=== PATIENT | male | born 1990 | race African-American/Black ===

== ENCOUNTER 2016-05-04 18:41 | Emergency (ER) | payer SELFPAY ==
[2016-05-04 19:41] VITALS: BMI 23.1
[2016-05-04 19:55] LABS: AUTOMATED BASOPHIL 0.5 % (0-2); AUTOMATED EOSINOPHIL 0.7 % (0-5); AUTOMATED LYMPH 41.8 % (17-44); AUTOMATED MONOCYTE 8.4 % (3-10); AUTOMATED NEUTROPHIL 48.6 % (45-76); MPV 8.7 fL (7.4-10.4)
[2016-05-04 20:07] LABS: BLOOD UREA NITROGEN 16 MG/DL (9-20); CALCIUM 9.5 MG/DL (8.4-10.2); CALCULATED OSMOLALITY 269 MOs/Kg (270-290); CHLORIDE 100 mEq/L (98-107); GLUCOSE 97 MG/DL (70-99); SODIUM LEVEL 139 mEq/L (137-146)
[2016-05-04 20:10] LABS: LEUKOCYTES/URINE NEG (NEGATIVE); NITRITE/URINE NEG (NEGATIVE); URINE OCCULT BLOOD NEG (NEG/TRACE)
--- NOTE | 2016-05-04 21:24 | EDPRACDOC ---
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 VOMITING 3 DAYS AGO. THEN BETTER. PAIN CURRENTLY 9/10, SHARP. ALSO WANTS TO GET A LUMP ON RIGHT CHEST FOR ABOUT A YEAR, GETTING BIGGER. WANTS CHECKED. ED Past Medical History - History Reviewed Yes Nurses notes reviewed and agree except as marked - Patient Medical History Psychological History: Denies: Depression Systemic History: Denies: Cancer Surgical History: Reports: Appendectomy - Social Medical History Smoking Status: Never smoker EDM Review of Systems - Review of Systems ROS Negative Except as Marked: Yes All systems reviewed and were negative except as marked Constitutional: No Symptoms Reported. negative: Fever Eyes: No Symptoms Reported Respiratory: No Symptoms Reported Cardiovascular: No Symptoms Reported - Physical Exam Constitutional: Alert (Awake), No apparent distress Oriented to: Time, Person, Place Last recorded Vital Signs: Last Vital Signs Temp 98.5 F 05/04/16 19:38 Pulse 96 05/04/16 21:09 Resp 20 05/04/16 21:09 BP 137/78 05/04/16 21:09 Pulse Ox 98 05/04/16 21:09 Oxygen Pulse Oxygen Saturation 98 O2 Device Room Air Oxygen Flow Rate Fraction of Inspired Oxygen ( FIO2) - HEENT Head: Normal ( normocephalic) Eye Exam: Normal (PERRL, EOMI, Sclera white) Oropharynx: Normal (Pharynx:Moist without exudate,Gums-no swelling) Nose: No Symptoms Reported (septum midline) Neck: Normal (FROM, trachea at midline) - Respiratory/Cardiovascular Respiratory: Normal - CTA (ON LEFT), Diminished (ON RIGHT) Cardiovascular: Normal (RRR without murmur, gallop or rub) - GI Auscultation: Normal (NABS) Palpation: Normal (Soft,No rebound or guarding, non distended) Tenderness: Non tender Pollard's Sign: Negative - Musculoskeletal Back: Normal (Non-Tender) Extremities: Normal (Normal tone, Pulses 2+ No cyanosis or edema, FROM) Musculoskeletal Comment: RIGHT ANTERIOR, INFERIOR CHEST WALL TTP. - Integumentary Skin: Normal, Warm, Dry, Other (NO MASSES FELT IN BREAST TISSUE, BUT PT POINTS TO AREA UNDER AREOLA) Lymphatics: Normal (no adenopathy) - Neurologic Memory Impaired: Normal Motor Function: Normal (Normal tone, Pulses 2+ No cyanosis or edema, FROM) Cranial Nerve: Normal (CN II-X11 intact sensation, strength 5/5) Cerebellar: Normal Mood Description: Normal Perception: Normal - Results 05/04/16 19:42 05/04/16 19:42 WBC 4.8 xk/uL (3.8-10.8) 05/04/16 19:42 RBC 5.68 xM/uL (4.70-6.10) 05/04/16 19:42 Hgb 15.6 g/dL (14.0-18.0) 05/04/16 19:42 Hct 46.7 % (42-52) 05/04/16 19:42 MCV 82 fL (80-94) 05/04/16 19:42 MCH 27.4 pg (27-32) 05/04/16 19:42 MCHC 33.3 g/dl (33-36) 05/04/16 19:42 RDW 13.4 % (11.5-14.5) 05/04/16 19:42 Plt Count 145 xk/uL (130-400) 05/04/16 19:42 MPV 8.7 fL (7.4-10.4) 05/04/16 19:42 Neut % (Auto) 48.6 % (45-76) 05/04/16 19:42 Lymph % (Auto) 41.8 % (17-44) 05/04/16 19:42 [place] % (Auto) 8.4 % (3-10) 05/04/16 19:42 Eos % (Auto) 0.7 % (0-5) 05/04/16 19:42 Baso % (Auto) 0.5 % (0-2) 05/04/16 19:42 Absolute Neuts (auto) 2.30 xk/uL (1.7-8.2) 05/04/16 19:42 Absolute Lymphs (auto) 1.97 xk/uL (0.65-4.75) 05/04/16 19:42 Sodium 139 mEq/L (137-146) 05/04/16 19:42 Potassium 4.1 mEq/L (3.5-5.1) 05/04/16 19:42 Chloride 100 mEq/L (98-107) 05/04/16 19:42 Carbon Dioxide 28 mMOL/L (22-33) 05/04/16 19:42 Anion Gap 15 mEq/L (8-16) 05/04/16 19:42 BUN 16 MG/DL (9-20) 05/04/16 19:42 Creatinine 0.90 MG/DL (0.66-1.25) 05/04/16 19:42 Estimated GFR (MDRD) > 60 mL/min (>=60) 05/04/16 19:42 Glucose 97 MG/DL (70-99) 05/04/16 19:42 Calculated Osmolality 269 MOs/Kg (270-290) L 05/04/16 19:42 Calcium 9.5 MG/DL (8.4-10.2) 05/04/16 19:42 Total Bilirubin 0.6 MG/DL (0.2-1.3) 05/04/16 19:42 AST 31 IU/L (17-59) 05/04/16 19:42 ALT 30 IU/L (21-72) 05/04/16 19:42 Alkaline Phosphatase 54 IU/L (38-126) 05/04/16 19:42 Total Protein 8.0 G/DL (6.3-8.2) 05/04/16 19:42 Albumin 4.6 G/DL (3.5-5.0) 05/04/16 19:42 Lipase 85 U/L (23-300) 05/04/16 19:42 Urine Color Yellow 05/04/16 19:42 Urine Clarity Clear 05/04/16 19:42 Urine pH 6.0 (5.0-8.0) 05/04/16 19:42 Ur Specific [place] 1.015 (1.003-1.035) 05/04/16 19:42 Urine Protein Neg (NEG/TRACE) 05/04/16 19:42 Urine Glucose (UA) Neg (NEGATIVE) 05/04/16 19:42 Urine Ketones Neg (NEGATIVE) 05/04/16 19:42 Urine Occult Blood Neg (NEG/TRACE) 05/04/16 19:42 Urine Nitrite Neg (NEGATIVE) 05/04/16 19:42 Urine Bilirubin Neg (NEGATIVE) 05/04/16 19:42 Urine Urobilinogen <2.0 MG/DL (0-1) 05/04/16 19:42 Ur Leukocyte Esterase Neg (NEGATIVE) 05/04/16 19:42 Lab Results 05/04/16 05/04/16 05/04/16 19:42 19:42 19:42 WBC 4.8 RBC 5.68 Hgb 15.6 Hct 46.7 MCV 82 MCH 27.4 MCHC 33.3 RDW 13.4 Plt Count 145 MPV 8.7 Neut % (Auto) 48.6 Lymph % (Auto) 41.8 [place] % (Auto) 8.4 Eos % (Auto) 0.7 Baso % (Auto) 0.5 Absolute Neuts (auto) 2.30 Absolute Lymphs (auto) 1.97 Sodium 139 Potassium 4.1 Chloride 100 Carbon Dioxide 28 Anion Gap 15 BUN 16 Creatinine 0.90 Estimated GFR (MDRD) > 60 Glucose 97 Calculated Osmolality 269 L Calcium 9.5 Total Bilirubin 0.6 AST 31 ALT 30 Alkaline Phosphatase 54 Total Protein 8.0 Albumin 4.6 Lipase 85 Urine Color Yellow Urine Clarity Clear Urine pH 6.0 Ur Specific [place] 1.015 Urine Protein Neg Urine Glucose (UA) Neg Urine Ketones Neg Urine Occult Blood Neg Urine Nitrite Neg Urine Bilirubin Neg Urine Urobilinogen <2.0 Ur Leukocyte Esterase Neg - EKG EKG #1 EKG Time: 21:42 -: Yes EKG interpreted by me Rate: bpm: 87 [place]: Normal Rhythm: NSR Block: None Hypertrophy: None ST: Normal Comments: NORMAL EKG - Departure Yes I personally saw and evaluated the patient. Disposition: Home Final Diagnosis: Chest wall pain Instructions: Chest Wall Pain Education/Counseling Given To: Patient Education/Counseling Given Regarding: Diagnosis Referrals: None,No Provider [Primary Care Provider] - One Week Efe Navarro MD [Staff Physician] - One Week Prescriptions: Ketorolac Tromethamine [Toradol] 10 mg PO Q6H PRN #10 tab PRN Reason: Pain Additional Instructions: FOLLOW UP WITH DR NAVARRO OR YOUR PCP FOR POSSIBLE OUTPATIENT ULTRASOUND RIGHT BREAST
[2016-05-04] MEDS ORDERED: KETOROLAC TROMETHAMINE 60 MG/2 ML SDV IM ONE (21:28)
--- NOTE | 2016-05-04 22:01 | DIRPT ---
CLINICAL DATA: Anterior right chest wall pain with inspiration today. Vomiting 3 days ago. Initial encounter. EXAM: CHEST 2 VIEW COMPARISON: CT chest 11/19/2011. FINDINGS: The lungs are clear. Heart size is normal. No pneumothorax or pleural effusion. No bony abnormality. IMPRESSION: Normal chest. Electronically Signed By: Michael Adams M.D. On: 05/04/2016 21:58
[2016-05-04] MEDS ORDERED: OXYCODONE HCL 5 MG TABLET PO ONE (22:41)
[2016-05-04 22:56] VITALS: BP 138/78; PULSE 101; TEMP 98.4
== END 2016-05-04 22:54 | disposition home or self-care (01) ==
LOC: ED 18:41
DX: R07.89 Other chest pain (principal)
CPT/HCPCS: 36415; 71020; 80053; 81001; 83690; 85025; 93005; 96372; 99283; J1885; J3490